=== PATIENT | female | born 1990 | race Caucasian/White ===

== ENCOUNTER → 2016-06-11 | Outpatient (CLI) | payer BC ==
[~2016-06-11] MED LIST: HYDR-3989 PO; IBUP-1547 PO
[2016-06-11 13:33] LABS: BASOPHILS % (AUTO) 0.3 % (0-2); EOSINOPHILS # (AUTO) 0.1 T/MM3 (0-0.5); HCT - HEMATOCRIT 42.2 % (36-46); HGB - HEMOGLOBIN 14.1 GM/DL (12-16); IMMATURE GRANULOCYTE # (AUTO) 0.01 T/MM3 (0.00-0.03); IMMATURE GRANULOCYTE % (AUTO) 0.1 % (0.0-0.5); LYMPHOCYTES # (AUTO) 1.6 T/MM3 (1-4.8); LYMPHOCYTES % (AUTO) 13.9 % (23-45); MEAN CORPUSCULAR HGB 31.1 UUG (26-34); MEAN CORPUSCULAR HGB CONC(MCHC 33.4 GM/DL (31-37); MEAN PLATELET VOLUME 11.6 UM3 (9.4-12.4); MONOCYTES # (AUTO) 0.7 T/MM3 (0-0.8); MONOCYTES % (AUTO) 5.9 % (0-9.0); NEUTROPHILS #(AUTO)-ABSOLUTE 9.3 T/MM3 (1.8-7.7); NEUTROPHILS % (AUTO) 78.8 % (33-66); RED BLOOD COUNT 4.54 M/MM3 (4.00-5.20); WBC - WHITE BLOOD COUNT 11.8 T/MM3 (4.5-11.0)
[2016-06-11 13:45] LABS: ALBUMIN 4.3 G/DL (3.5-5.0); ALBUMIN/GLOBULIN RATIO 1.5 RATIO (1.1-2.2); ALKALINE PHOSPHATASE 56 U/L (38-126); ALT (SGPT) 23 U/L (9-52); ANION GAP 10 MEQ/L (5-15); AST (SGOT) 19 U/L (14-36); BUN/CREATININE RATIO 14 RATIO (6-26); C-REACTIVE PROTEIN < 5.0 MG/L (0-9); CALCIUM 9.2 MG/DL (8.4-10.2); CHLORIDE 106 MEQ/L (98-107); CO2 - CARBON DIOXIDE 27 MEQ/L (22-30); CREATININE 0.7 MG/DL (0.7-1.2); GLOMERULAR FILTRATION RATE 102; GLUCOSE 93 MG/DL (65-110); POTASSIUM 4.5 MEQ/L (3.6-5); SODIUM 143 MEQ/L (134-144); TOTAL PROTEIN 7.2 G/DL (6.3-8.2)
--- NOTE | 2016-06-11 13:47 | DI ---
Indication: ITS.REASON: N30.01 ACUTE CYSTITIS WITH HEMATURIA; R31.9 HEMATURIA, UNSP PROCEDURE: US RENAL: Encounter: Initial Comparison: None Technique: Grayscale and color Doppler sonographic imaging of both kidneys and bladder was performed. FINDINGS: Both kidneys are present with normal cortical thickness and echogenicity. No evidence for collecting system dilatation, contour deforming mass, nephrolithiasis, or abnormal perinephric fluid collection. The right kidney measures 9.8 cm in length, and the left kidney measures 9.8 cm in length. Bladder appears sonographically normal without debris or mass. Bilateral ureteral jets were seen. Prevoid bladder volume of 126.7 mL. Post void residual volume of less than 4 mL IMPRESSION: Normal renal sonogram. .
== END ==
LOC: IMA 12:38
PROVIDERS: ATTEND Internal Medicine
DX: N30.01 Acute cystitis with hematuria (principal)
CPT/HCPCS: 36415; 80053; 85025; 86140